=== PATIENT | male | born 1980 | race Caucasian/White ===

== ENCOUNTER 2022-05-19 21:50 | Inpatient (IN) | payer MEDICAID ==
[~2022-05-19] VITALS: Ht 177.8 cm; Wt 111.1 kg
[2022-05-19 22:41] LABS: HEMATOCRIT 48.2 % (36.7-47.1); MEAN CORPUSCULAR HEMOGLOBIN 32.1 uug (23.8-33.4); MEAN CORPUSCULAR VOLUME 92.1 fL (73.0-96.2); PLATELET COUNT (AUTO) 234 K/uL (152-348)
[2022-05-19 22:47] LABS: CARBON DIOXIDE 27 mmol/L (21-32); CHLORIDE 102 mmol/L (98-107); CREATININE 1.3 mg/dL (0.6-1.3); GLUCOSE 122 mg/dL (74-106); POTASSIUM 3.5 mmol/L (3.5-5.1); UREA NITROGEN, BLOOD 17 mg/dL (7-18)
[2022-05-19 22:56] LABS: ALANINE AMINOTRANSFERASE 69 U/L (16-63); ALKALINE PHOSPHATASE 90 U/L (50-136); ASPARTATE AMINOTRANSFERASE 27 U/L (15-37); BILIRUBIN,DIRECT 0.1 mg/dL (0.0-0.2); BILIRUBIN,TOTAL 0.3 mg/dL (0.2-1.0); TOTAL PROTEIN, SERUM 8.5 g/dL (6.4-8.2)
[2022-05-19] MEDS: MAGNESIUM SULFATE/D5W 100 ML IV SCH (23:00)
[2022-05-19] MEDS ORDERED: ONDANSETRON 4 MG/2 ML VIAL ONE (23:15)
[2022-05-19] MEDS ORDERED: MAGNESIUM SULFATE/D5W 100 ML ONE (23:15)
[2022-05-19] MEDS ORDERED: ONDANSETRON 4 MG/2 ML VIAL IV ONE (23:15)
[2022-05-19] MEDS ORDERED: HYDROMORPHONE 1 MG/1 ML DISP.SYRIN IV ONE (23:15)
[2022-05-19] MEDS ORDERED: HYDROMORPHONE 1 MG/1 ML DISP.SYRIN ONE (23:16)
[2022-05-20] MEDS ORDERED: MAGNESIUM SULFATE/D5W 100 ML ONE (00:30)
[2022-05-20] MEDS: MAGNESIUM SULFATE/D5W 100 ML IV SCH (00:34)
[2022-05-20] MEDS ORDERED: METOPROLOL TARTRATE 50 MG TABLET ONE ×2 (02:12→20:38)
[2022-05-20] MEDS ORDERED: METOPROLOL TARTRATE 50 MG TABLET PO ONE (02:15)
[2022-05-20] MEDS ORDERED: MORPHINE SULFATE 2 MG/1 ML DISP.SYRIN IV PRN (02:45)
[2022-05-20] MEDS ORDERED: NITROGLYCERIN 0.4 MG/TAB BOTTLE SL ONE (02:45)
[2022-05-20] MEDS ORDERED: ONDANSETRON 4 MG/2 ML VIAL IV PRN (02:45)
[2022-05-20] MEDS ORDERED: MAGNESIUM HYDROXIDE 30 ML LIQUID UDC PO PRN (02:45)
[2022-05-20] MEDS ORDERED: REMEDY ESSENTIAL ZINC PASTE 113 GM TP PRN (02:45)
[2022-05-20] MEDS ORDERED: NITROGLYCERIN OINT 1 GM PACKET TP ONE ×2 (03:15→03:34)
[2022-05-20 07:29] LABS: HEMATOCRIT 43.8 % (36.7-47.1); MEAN CORPUSCULAR HEMOGLOBIN 32.3 uug (23.8-33.4); MEAN CORPUSCULAR VOLUME 91.9 fL (73.0-96.2); PLATELET COUNT (AUTO) 216 K/uL (152-348)
[2022-05-20 07:44] LABS: CREATININE 1.1 mg/dL (0.6-1.3); MAGNESIUM 2.2 mg/dL (1.8-2.4); POTASSIUM 3.7 mmol/L (3.5-5.1)
--- NOTE | 2022-05-20 08:35 | NUR ---
PT IS IN ROOM $2A. DR ARGUETA EVALUATED THE PT.
[2022-05-20] MEDS ORDERED: ASPIRIN 81 MG TAB.CHEW PO SCH (09:00)
[2022-05-20 09:16] LABS: THYROID STIMULATING HORMONE 1.682 mIU/mL (0.358-3.740)
[2022-05-20] MEDS ORDERED: ASPIRIN 81 MG TAB.CHEW ONE (09:49)
[2022-05-20] MEDS ORDERED: ENOXAPARIN SODIUM 100 MG/ML DISP.SYRIN SQ ONE (09:49)
[2022-05-20] MEDS ORDERED: ENOXAPARIN SODIUM 30 MG/0.3 ML DISP.SYRIN ONE (09:50)
[2022-05-20] MEDS: ENOXAPARIN SODIUM 60 MG/0.6 ML DISP.SYRIN SQ SCH ×2 (09:54→20:59)
--- NOTE | 2022-05-20 10:37 | NUR ---
DR MULLER EVALUATED THE PT.
[2022-05-20] MEDS ORDERED: ACETAMINOPHEN 325 MG TABLET ONE (14:07)
[2022-05-20] MEDS: ACETAMINOPHEN 325 MG TABLET PO PRN ×2 (14:09→18:43)
--- NOTE | 2022-05-20 19:00 | NUR ---
Received pt. from EVELIN Lorenzo, [id number], able to ambulate.
[2022-05-20] MEDS ORDERED: LORAZEPAM 2 MG/1 ML VIAL IV PRN (20:30)
[2022-05-20] MEDS ORDERED: ENOXAPARIN SODIUM 60 MG/0.6 ML DISP.SYRIN SQ ONE (20:38)
[2022-05-20] MEDS ORDERED: ATORVASTATIN 20 MG TABLET ONE (20:39)
[2022-05-20] MEDS ORDERED: LORAZEPAM 2 MG/1 ML VIAL ONE (20:41)
[2022-05-20] MEDS ORDERED: ATORVASTATIN 40 MG TABLET PO SCH (21:00)
[2022-05-20] MEDS ORDERED: METOPROLOL TARTRATE 25 MG TABLET PO SCH (21:00)
[2022-05-20] MEDS ORDERED: ATORVASTATIN 20 MG TABLET PO SCH (21:00)
--- NOTE | 2022-05-20 22:38 | NUR ---
Pt. decided to AMA, called [facility] to notify. awaiting for Leighann to call back. Dr. Nolen at bedside currently talking to the patient.
--- NOTE | 2022-05-20 23:15 | NUR ---
Pt. left AMA, walked with family. VSS.
--- NOTE | 2022-05-20 23:16 | NUR ---
Patient discharged to home in stable condition. Written and verbal after care instructions given. Patient verbalizes understanding of instructions. Stressed follow up or return to ER for worsening s/s.
[2022-05-21 01:03] VITALS: BP 122/80
[2022-05-21] MEDS ORDERED: ASPIRIN EC 325 MG TABLET.DR PO SCH (09:00)
== END 2022-05-20 23:16 | disposition left against medical advice (07) | DRG 190 ==
LOC: ER 21:53 → TRANSITION 05-20 02:00 → TELE3 05-20 20:22
PROVIDERS: ADMIT Nurse Practitioner Acute Care; ATTEND Nurse Practitioner Acute Care
DX: I21.4 Non-ST elevation (NSTEMI) myocardial infarction (principal); D68.69 Other thrombophilia; Z68.35 Body mass index [BMI] 35.0-35.9, adult; E66.01 Morbid (severe) obesity due to excess calories; E78.5 Hyperlipidemia, unspecified; I16.0 Hypertensive urgency; Z20.822 Contact with and (suspected) exposure to COVID-19
CPT/HCPCS: 36415; 71045; 83735; 84443; 84484; 85025; 93005; 93307; G0378; J1170; J1650; J2060; J2405; J3475